=== PATIENT | male | born 1965 | race Caucasian/White ===

== ENCOUNTER 2023-04-27 13:08 | Observation (INO) | payer BC, OTHER ==
[2023-04-27 14:30] LABS: #Basophils 0.1 thou/uL (0.0-0.2); #Eosinphils 0.1 thou/uL (0.0-0.7); #Monocytes 0.6 thou/uL (0.11-0.59); #Neutrophils 4.4 thou/uL (1.40-6.50); %Eosinophils 1.3 % (0.0-10.0); %Lymphocytes 25.5 % (21.0-51.0); %Monocytes 8.1 % (0.0-10.0); %Neutrophils 63.8 % (42.0-75.0); Hematocrit 43.6 % (42.0-52.0); Hemoglobin 14.9 g/dL (14.0-18.0); Mean Corpuscular HGB CONC 34.2 g/dL (32.0-36.0); Mean Corpuscular Hemoglobin 30.1 pg (27.0-31.0); Mean Corpuscular Volume 88.1 fl (78.0-98.0); Mean Platelet Volume 10.1 fL (7.4-10.4); Platelet Count 304 10x3/uL (130-400); RBC Distribution Width 11.9 % (11.5-14.5); Red Blood Cell (RBC) Count 4.95 mill/uL (4.70-6.10); White Blood Cell (WBC) Count 6.9 10x3/uL (4.8-10.8)
[2023-04-27 14:54] LABS: ALT (SGPT) 28 U/L (8-55); AST (SGOT) 19 U/L (5-34); Albumin 4.1 g/dL (3.5-5.0); Alkaline Phosphatase 100 U/L (40-110); Anion Gap 17 mmol/L (10-20); BUN (Urea Nitrogen) 22 mg/dL (8.4-25.7); Bilirubin, Total 0.6 mg/dL (0.2-1.2); Calc. Creatinine Clearance 0 mL/min (70-130); Calcium 9.6 mg/dL (7.8-10.44); Carbon Dioxide 21 mmol/L (22-29); Chloride 99 mmol/L (98-107); Estimated GFR 50; Lipase 52 U/L (8-78); Potassium 4.6 mmol/L (3.5-5.1); Protein, Total 7.1 g/dL (6.0-8.3); Sodium 132 mmol/L (136-145)
[2023-04-27 14:58] LABS: Troponin I Less than 0.010 ng/mL (< 0.028)
[2023-04-27 15:03] LABS: Bacteria/HPF None Seen HPF (None Seen); Bilirubin Negative (Negative); Blood, Urine Negative (Negative); CAUTI Indications for Culture Dysuria,urgency,freq; Clarity Clear (Clear); Glucose, Urine (Dipstick) Greater than 1000 mg/dL (Negative); Ketone, Urine 10 mg/dL (Negative); Leukocyte Negative Leu/uL (Negative); Nitrite Negative (Negative); Protein, Urine (Dipstick) Negative (Neg-Trace); RBC/HPF 0-3 HPF (0-3); Specific Gravity, Urine 1.036 (1.002-1.036); Squamous Epithelial None Seen HPF (0-3); Urobilinogen Normal mg/dL (Less than 2); WBC/HPF None Seen HPF (0-3)
[2023-04-27 15:05] LABS: Urine Culture Reflex No No
[2023-04-27 15:20] LABS: SARS-CoV-2 NAA Rapid Test DETECTED (NotDetected)
[2023-04-27 15:30] LABS: Glucose 561 mg/dL (70-105)
[2023-04-27] MEDS ORDERED: Acetaminophen 325 MG TAB PO PRN (17:10)
[2023-04-27] MEDS ORDERED: Ondansetron PF 4 MG/2 ML Vial IVP PRN (17:10)
[2023-04-27] MEDS ORDERED: hydrALAZINE 20 MG/ML VIAL SLOW IVP PRN (17:10)
[2023-04-27] MEDS ORDERED: Dextrose 50% Abboject 50 ML SYRINGE SLOW IVP PRN (17:12)
[2023-04-27] MEDS ORDERED: Dextrose 5% in Water 1,000 ML IV PRN (17:12)
[2023-04-27] MEDS ORDERED: HumaLOG 300 UNITS/3 ML VIAL SC PRN (17:12)
[2023-04-27] MEDS ORDERED: Glucagon 1 MG/ML KIT IM PRN (17:12)
[2023-04-27] MEDS ORDERED: Insulin Glargine 30 UNITS/0.3 ML VIAL SC SCH (17:15)
[2023-04-27] MEDS ORDERED: Electrolyte Replacement Protocol 1 EACH FS SCH (17:15)
[2023-04-27] MEDS ORDERED: Sodium Chloride 0.9% 1,000 ML IV SCH (17:15)
[2023-04-27 18:25] LABS: Lactic Acid 2.4 mmol/L (0.5-2.2)
[2023-04-27] MEDS: Sodium Chloride 0.9% 1,000 ML IV SCH (19:38)
[2023-04-27 19:43] LABS: Anion Gap 15 mmol/L (10-20); BUN (Urea Nitrogen) 20 mg/dL (8.4-25.7); Calc. Creatinine Clearance 83 mL/min (70-130); Calcium 8.4 mg/dL (7.8-10.44); Carbon Dioxide 19 mmol/L (22-29); Chloride 104 mmol/L (98-107); Estimated GFR 65; Potassium 4.5 mmol/L (3.5-5.1); Sodium 133 mmol/L (136-145)
[2023-04-27 19:58] LABS: Glucose 485 mg/dL (70-105)
[2023-04-27 23:39] VITALS: BMI 30.9
[2023-04-28] MEDS: Sodium Chloride 0.9% 1,000 ML IV SCH ×2 (05:05→14:42)
[2023-04-28] MEDS: HumaLOG 300 UNITS/3 ML VIAL SC PRN ×2 (05:05→12:51)
[2023-04-28 10:17] LABS: Anion Gap 11 mmol/L (10-20); BUN (Urea Nitrogen) 15 mg/dL (8.4-25.7); Calc. Creatinine Clearance 104 mL/min (70-130); Calcium 8.8 mg/dL (7.8-10.44); Carbon Dioxide 22 mmol/L (22-29); Chloride 106 mmol/L (98-107); Estimated GFR 79; Glucose 227 mg/dL (70-105); Potassium 4.2 mmol/L (3.5-5.1); Sodium 135 mmol/L (136-145)
[2023-04-28 17:42] VITALS: BP 165/94; TEMP 97.8
== END 2023-04-28 17:30 | disposition home or self-care (01) ==
LOC: ERS 13:08 → T4-B 16:41
PROVIDERS: ADMIT Family Medicine; ATTEND Family Medicine
DX: N17.9 Acute kidney failure, unspecified (principal); U07.1 COVID-19; E11.40 Type 2 diabetes mellitus with diabetic neuropathy, unspecified; E11.65 Type 2 diabetes mellitus with hyperglycemia; E86.0 Dehydration; E87.20 Acidosis, unspecified; I10 Essential (primary) hypertension; E78.5 Hyperlipidemia, unspecified; Z79.84 Long term (current) use of oral hypoglycemic drugs; Z79.899 Other long term (current) drug therapy
CPT/HCPCS: 36415; 36416; 71045; 80048; 80053; 81001; 83605; 83690; 83880; 84484; 85025; 85379; 87040; 93005; G0378; J1815; J7050; U0002